=== PATIENT | female | born 1990 | race Caucasian/White ===

== ENCOUNTER 2019-12-30 14:50 | Outpatient (CLI) | payer OTHER ==
--- NOTE | 2019-12-30 15:46 | XRay Report ---
CHEST 2 VIEWS INDICATION / CLINICAL INFORMATION: Z01.810Encounter for preprocedural cardiovascular examination. COMPARISON: None available. FINDINGS: SUPPORT DEVICES: None. HEART / MEDIASTINUM: No significant abnormality. LUNGS / PLEURA: No significant pulmonary or pleural abnormality. No pneumothorax. ADDITIONAL FINDINGS: No significant additional findings. IMPRESSION: 1. No acute findings. Signer Name: Wood Lemos MD Signed: 12/30/2019 3:41 PM Workstation Name: [id number]
== END 2019-12-30 14:51 | disposition home or self-care (01) ==
LOC: XRAY 14:50
PROVIDERS: ATTEND Internal Medicine
DX: Z01.810 Encounter for preprocedural cardiovascular examination (principal)
CPT/HCPCS: 71046